=== PATIENT | female | born 2000 | race Caucasian/White ===

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

== ENCOUNTER 2023-03-11 15:18 | Emergency (ER) | payer BC, OTHER ==
[~2023-03-11] VITALS: Ht 165.1 cm; Wt 96.4 kg
[~2023-03-11 15:18] MED LIST changes: +KEFLEX500 MG PO
[2023-03-11 16:10] VITALS: BP 111/64
== END 2023-03-11 16:10 | disposition home or self-care (01) ==
LOC: ED 15:18
DX: J02.8 Acute pharyngitis due to other specified organisms (principal); Z88.0 Allergy status to penicillin; Z79.899 Other long term (current) drug therapy
CPT/HCPCS: 87880

== ENCOUNTER 2023-07-20 19:15 | Emergency (ER) | payer BC, OTHER ==
[2023-07-20] MEDS ORDERED: FLONASE ALLERG9.9 ML NAS (19:41)
[2023-07-20 20:09] VITALS: BP 126/95
== END 2023-07-20 20:10 | disposition home or self-care (01) ==
LOC: ED 19:15
DX: H68.013 Acute Eustachian salpingitis, bilateral (principal); Z88.0 Allergy status to penicillin
CPT/HCPCS: 99282

== ENCOUNTER 2024-03-23 10:10 | Emergency (ER) | payer BC, OTHER ==
[~2024-03-23] VITALS: Ht 165.1 cm; Wt 111.4 kg
[~2024-03-23 10:10] MED LIST changes: +FLONASE ALLERG9.9 ML NAS
[2024-03-23] MEDS ORDERED: CEFDINIR 300 MG CAP PO ONE (10:30)
[2024-03-23] MEDS ORDERED: FLONASE ALLERG9.9 ML NAS (10:35)
[2024-03-23] MEDS ORDERED: CEFPODOXIME PR200 MG PO (10:35)
[2024-03-23] MEDS ORDERED: CLARITIN10 M2 PO (10:35)
[2024-03-23 10:44] VITALS: BP 132/80
== END 2024-03-23 10:44 | disposition home or self-care (01) ==
LOC: ED 10:10
DX: J32.9 Chronic sinusitis, unspecified (principal); Z88.0 Allergy status to penicillin; Z79.899 Other long term (current) drug therapy
CPT/HCPCS: 99283

== ENCOUNTER 2024-03-31 12:31 | Emergency (ER) | payer BC, OTHER ==
[~2024-03-31] VITALS: Ht 165.1 cm; Wt 112.4 kg
[~2024-03-31 12:31] MED LIST changes: +CEFPODOXIME PR200 MG PO; +CLARITIN10 M2 PO
--- OUTSIDE RECORDS SUMMARY | 2024-03-31 12:40 | XMS ---
PreManage Notification: CORAL LANGLEY Security Safety Companion Events No recent Security Events currently on file CRITERIA MET - [facility] - 2 Visits in 30 Days CARE PROVIDERS -, [facility] Dentist: Science Consultant [facility] PHONE: [phone] -, [facility]- Dentist: Science Consultant [facility] PHONE: [phone] KIERA MORALES Nurse Practitioner: Family Current PHONE: [phone] [facility]: [facility] Current \F\ [facility] PHONE: [phone] Yefri has no Care Guidelines for this patient. Yasmani VISIT COUNT (12 MO.) 3 [facility] TOTAL 3 NOTE: Visits indicate total known visits. ED/UCC VISIT TRACKING (12 MO.) 03/31/2024 12:33 [facility] TYPE: Emergency COMPLAINT: - ABD PAIN 03/23/2024 10:11 [facility] TYPE: Emergency COMPLAINT: - COLD SYMPTOMS DIAGNOSES: - Allergy status to penicillin - Chronic sinusitis, unspecified - Cough, unspecified - Other case picker (current) drug therapy 07/20/2023 19:15 [facility] TYPE: Emergency COMPLAINT: - EAR PAIN DIAGNOSES: - Acute Eustachian salpingitis, bilateral - Allergy status to penicillin - Otalgia, bilateral INPATIENT VISIT TRACKING (12 MO.) No inpatient visits to display in this time frame [email or web address]
[2024-03-31] MEDS ORDERED: ASPIRIN81 MG PO (12:42)
[2024-03-31 13:03] LABS: BILIRUBIN, URINE NEGATIVE (negative); BLOOD/HGB, URINE NEGATIVE (Negative); KETONE, URINE NEGATIVE (Negative); LEUK ESTERASE, URINE NEGATIVE (negative); NITRITE, URINE NEGATIVE (negative)
[2024-03-31] MEDS ORDERED: DIFLUCAN200 MG PO (13:36)
[2024-03-31] MEDS ORDERED: FLUCONAZOLE 150 MG TAB PO ONE (13:45)
[2024-03-31 14:02] VITALS: BP 118/73
== END 2024-03-31 14:04 | disposition home or self-care (01) ==
LOC: ED 12:31
PROVIDERS: Emergency Medicine
DX: O23.593 Infection of other part of genital tract in pregnancy, third trimester (principal); B37.31 Acute candidiasis of vulva and vagina; Z3A.30 30 weeks gestation of pregnancy; Z88.0 Allergy status to penicillin; Z79.82 Long term (current) use of aspirin
CPT/HCPCS: 81003; 99284

== ENCOUNTER 2024-05-30 00:02 | Inpatient (IN) | payer BC, OTHER ==
[~2024-05-30] VITALS: Ht 165.1 cm; Wt 109.3 kg
[~2024-05-30 00:02] MED LIST changes: +ASPIRIN81 MG PO; +CALCIUM CARBONATE 500 MG CHEW PO PRN; +DIFLUCAN200 MG PO; +LACTATED RINGER'S 1,000 ML IV SCH; +MAGNESIUM HYDROXIDE/AL HYDROX 30 ML CUP PO PRN; +miSOPROStoL 25 MCG TAB PV SCH
[2024-05-30] MEDS ORDERED: OXYTOCIN/DEXTROSE 5% 20 UNITS/100 ML BAG IV SCH (00:15)
[2024-05-30 00:35] VITALS: BP 144/88
[2024-05-30 01:02] LABS: AMPHETAMINES, URINE NEGATIVE (NEGATIVE); BARBITURATES, URINE NEGATIVE (NEGATIVE); BENZODIAZEPINE, URINE NEGATIVE (NEGATIVE); BUPRENORPHINE, URINE NEGATIVE (NEGATIVE); CANNABINOID, URINE NEGATIVE (NEGATIVE); COCAINE, URINE NEGATIVE (NEGATIVE); ECSTASY, URINE NEGATIVE (NEGATIVE); FENTANYL, URINE NEGATIVE (NEGATIVE); METHADONE, URINE NEGATIVE (NEGATIVE); OPIATES, URINE NEGATIVE (NEGATIVE); OXYCODONE, URINE NEGATIVE (NEGATIVE); PHENCYCLIDINE, URINE NEGATIVE (NEGATIVE)
[2024-05-30 01:17] LABS: HEMATOCRIT 30.9 % (35.0-50.0); HEMOGLOBIN 10.7 g/dL (12.0-18.0); MCH 29.8 (27-36); MCHC 34.5 g/dl (30-36); MCV 86.4 fl (81-99); RBC 3.58 M/ul (4.3-5.7); RDW 14.2 (10.5-15.0)
[2024-05-30 01:52] LABS: ABO O; ANTIBODY SCREEN NEGATIVE; RH POSITIVE
--- NOTE | 2024-05-30 17:31 | PR ---
[facility] [address] [place], [place] [address] Signed Progress Notes IP Datetime Report Generated by SHELL: 05/30/2024 17:31 PROGRESS NOTES: [id number] Impression: Normal Progression of Labor; Reassuring Heart Rate Procedures: Intrauterine Pressure Catheter; Scalp Electrode; Sterile Vag Exam Plan: Continue Present Management Informed Consent Obtain: Vaginal Delivery VITAL SIGNS: [id number] Vital Signs: Reviewed; Within Normal Limits VS Notable Details: Slightly elevated systolic at last check; will monitor EXAM: [id number] Dilatation: 4.0 Effacement: 50 Station: -2 Contractions: q 2-3 min MEMBRANES: [id number] Comments: Pt seen and examined. Doing well. Contractions much more uncomfortable. Considering epidural. Minimal change since last check. IUPC and FSE placed w/out difficulty after obtaining verbal consent. Will monitor for adequacy of contractions and consider augmentation if indicated. FETUS A: [id number] FHR Baseline: 125 Variability: Moderate 6-25bpm Accelerations: 15X15 Decelerations: None FHR Category: Category I Presentation: Vertex Comments on Fetus A: No evidence of metabolic acidosis FETUS B: [id number] Signing Physician: Roberto Szymanski DO Copies: ~ *Electronically Signed* 05/30/24 2507 ROBERTO SZYMANSKI (CASSI) DO PATIENT NAME: CORAL LANGLEY PROGRESS NOTE DATE OF : 01 PHYSICIAN: ROBERTO SZYMANSKI (JD) DO RPT #: [id number] REPORT IS CONFIDENTIAL AND NOT TO BE RELEASED WITHOUT AUTHORIZATION
[2024-05-30] MEDS ORDERED: OXYTOCIN/0.9 % SODIUM CHLORIDE 500 ML IV SCH (18:30)
--- NOTE | 2024-05-30 21:27 | PR ---
[facility] [address] [facility] [place], [place] [address] Signed Progress Notes IP Datetime Report Generated by CPN: 05/30/2024 21:27 PROGRESS NOTES: [id number] Impression: Normal Progression of Labor; Reassuring Heart Rate Procedures: Intrauterine Pressure Catheter; Scalp Electrode; Sterile Vag Exam Plan: Continue Present Management; Anticipate Vaginal Delivery Informed Consent Obtain: Vaginal Delivery VITAL SIGNS: [id number] Vital Signs: Reviewed; Within Normal Limits VS Notable Details: Slightly elevated systolic at last check; will monitor EXAM: [id number] Dilatation: 4.5 Effacement: 50 Station: -2 Contractions: q 2-3 min MEMBRANES: [id number] Comments: Pt doing well. Adequate contractions. FHT Cat 1. Considering epidural. Will monitor FETUS A: [id number] FHR Baseline: 125 Variability: Moderate 6-25bpm Accelerations: 15X15 Decelerations: None FHR Category: Category I Presentation: Vertex Comments on Fetus A: No evidence of metabolic acidosis FETUS B: [id number] Signing Physician: Roberto Szymanski DO Copies: ~ *Electronically Signed* 05/30/242126 ROBERTO SZYMANSKI (CASSI) DO PATIENT NAME: CORAL LANGLEY PROGRESS NOTE DATE OF : 01 PHYSICIAN: ROBERTO SZYMANSKI (JD) DO RPT #: [id number] REPORT IS CONFIDENTIAL AND NOT TO BE RELEASED WITHOUT AUTHORIZATION
[2024-05-30] MEDS ORDERED: ROPIVACAINE 0.2% 200 ML BAG ONE (21:48)
[2024-05-30] MEDS ORDERED: LACTATED RINGER'S 2,000 ML IV ONE (22:30)
[2024-05-30] MEDS ORDERED: LACTATED RINGER'S 500 ML IV PRN (22:30)
[2024-05-30] MEDS ORDERED: ePHEDrine sulfate 5 MG/ML SYRINGE IV PRN (22:30)
[2024-05-30] MEDS ORDERED: ROPIVACAINE 0.2% 200 ML BAG EPIDURAL SCH (22:30)
--- NOTE | 2024-05-31 01:01 | PR ---
[facility] [address] [place], [place] [address] Signed Progress Notes IP Datetime Report Generated by CPN: 05/31/2024 01:01 PROGRESS NOTES: [id number] Impression: Normal Progression of Labor; Reassuring Heart Rate Procedures: Scalp Electrode; Sterile Vag Exam Plan: Continue Present Management Informed Consent Obtain: Vaginal Delivery VITAL SIGNS: [id number] Vital Signs: Reviewed; Within Normal Limits VS Notable Details: Slightly elevated systolic at last check; will monitor EXAM: [id number] Dilatation: 5.0 Effacement: 60 Station: -2 Contractions: Irregular, inadequate MEMBRANES: [id number] Comments: Called to pt room to evaluate patient. Moderate variability w/ accelerations and intermittent late decelerations. Pit at 4. On exam MILAGRO position of vertex w/ caput, cervix much softer and stretchy, continue accels w/ scalp stim. Reviewed EFW, adequate pelvis. FHT overall reassuring. Discussed w/ pt and recommended continued trial of vaginal labor. Comfortable w/ epidural. Afebrile. Pt understands and agrees. All questions answered. FETUS A: [id number] FHR Baseline: 125 Variability: Moderate 6-25bpm Accelerations: 15X15 Decelerations: Late FHR Category: Category II Presentation: Vertex Comments on Fetus A: No evidence of metabolic acidosis FETUS B: [id number] Signing Physician: Roberto Szymanski DO Copies: ~ *Electronically Signed* 05/31/24 0101 ROBERTO SZYMANSKI (CASSI) DO PATIENT NAME: CORAL LANGLEY PROGRESS NOTE DATE OF : 01 PHYSICIAN: ROBERTO SZYMANSKI (JD) DO RPT #: [id number] REPORT IS CONFIDENTIAL AND NOT TO BE RELEASED WITHOUT AUTHORIZATION
--- NOTE | 2024-05-31 06:07 | PR ---
[facility] [address] [place], [place] [address] Signed Progress Notes IP Datetime Report Generated by CPN: 05/31/2024 06:07 PROGRESS NOTES: [id number] Impression: Normal Progression of Labor; Reassuring Heart Rate Procedures: Sterile Vag Exam Plan: Continue Present Management Informed Consent Obtain: Vaginal Delivery VITAL SIGNS: [id number] Vital Signs: Reviewed; Within Normal Limits VS Notable Details: Slightly elevated systolic at last check; will monitor EXAM: [id number] Dilatation: 7.0 Effacement: 60 Station: -2 Contractions: q 3-5 min MEMBRANES: [id number] Comments: Pt seen and examined. Comfortable w/ contractions. Overall reassuring FHT w/ moderate variability and accelerations. Anticipate continued progress and recommend continuing trial of vaginal delivery. Pt understands and agrees. FETUS A: [id number] FHR Baseline: 125 Variability: Moderate 6-25bpm Accelerations: 15X15 Decelerations: Late; Variable FHR Category: Category II Presentation: Vertex Comments on Fetus A: No evidence of metabolic acidosis FETUS B: [id number] Signing Physician: Roberto Szymanski DO Copies: ~ *Electronically Signed* 05/31/24606 ROBERTO SZYMANSKI (CASSI) DO PATIENT NAME: CORAL LANGLEY PROGRESS NOTE DATE OF : 01 PHYSICIAN: ROBERTO SZYMANSKI (JD) DO RPT #: [id number] REPORT IS CONFIDENTIAL AND NOT TO BE RELEASED WITHOUT AUTHORIZATION
[2024-05-31] MEDS ORDERED: SODIUM CHLORIDE 0.9% 1,000 ML IV SCH (08:15)
--- NOTE | 2024-05-31 09:18 | PR ---
[facility] [address] [place], [place] [address] Signed Progress Notes IP Datetime Report Generated by SHELL: 05/31/2024 09:18 PROGRESS NOTES: [id number] Impression: Normal Progression of Labor; Reassuring Heart Rate Procedures: Amnio Infusion Other Procedures: D/C'd pitocin Plan: Continue Present Management Informed Consent Obtain: Vaginal Delivery; Section Delivery VITAL SIGNS: [id number] Vital Signs: Reviewed; Within Normal Limits VS Notable Details: Slightly elevated systolic at last check; will monitor EXAM: [id number] Dilatation: 7.0 Effacement: 70 Station: -2 Contractions: q 3-5 min MEMBRANES: [id number] Comments: Pt seen and examined. Doing well and comfortable w/ contractions. Developed recurrent deep variable decelerations. Pitocin was discontinued and amnio-infusion started. Variables much improved, however contractions have significantly spaced. Kwasi continue to monitor. Consider restarting pitocin when appropriate. Discussed plan for but also reviewed indications for if needed, but no indication for that now FETUS A: [id number] FHR Baseline: 125 Variability: Moderate 6-25bpm Accelerations: 15X15 Decelerations: Variable FHR Category: Category II Presentation: Vertex Comments on Fetus A: No evidence of metabolic acidosis FETUS B: [id number] Signing Physician: Roberto Szymanski DO Copies: ~ *Electronically Signed* 05/31/24917 ROBERTO SZYMANSKI (CASSI) DO PATIENT NAME: CORAL LANGLEY PROGRESS NOTE DATE OF : 01 PHYSICIAN: ROBERTO SZYMANSKI (JD) DO RPT #: [id number] REPORT IS CONFIDENTIAL AND NOT TO BE RELEASED WITHOUT AUTHORIZATION
--- NOTE | 2024-05-31 11:23 | PR ---
[facility] [address] [place], [place] [address] Signed Progress Notes IP Datetime Report Generated by SHELL: 05/31/2024 11:23 PROGRESS NOTES: [id number] Impression: Normal Progression of Labor; Reassuring Heart Rate Procedures: Sterile Vag Exam Other Procedures: D/C'd pitocin Plan: Continue Present Management Informed Consent Obtain: Vaginal Delivery; Section Delivery VITAL SIGNS: [id number] Vital Signs: Reviewed; Within Normal Limits VS Notable Details: Slightly elevated systolic at last check; will monitor EXAM: [id number] Dilatation: 8.0 Effacement: 70 Station: -2 Contractions: q 4-6 min, inadequate MEMBRANES: [id number] Comments: Pt seen and examined. Doing well. Comfortable w/ contractions. FHT reassuring. Contractions inadequate and pit was restarted. Will continue increasing pitocin per protocol. Cx now 8cm and soft. Again reviewed adequate pelvis, afebrile / no tachycardia, and EFW. FETUS A: [id number] FHR Baseline: 125 Variability: Moderate 6-25bpm Accelerations: 15X15 Decelerations: Early; Variable FHR Category: Category II Presentation: Vertex Comments on Fetus A: No evidence of metabolic acidosis FETUS B: [id number] Signing Physician: Roberto Szymanski DO Copies: ~ *Electronically Signed* 05/31/24 1123 ROEBRTO SZYMANSKI (CASSI) DO PATIENT NAME: CORAL LANGLEY PROGRESS NOTE DATE OF : 01 PHYSICIAN: ROBERTO SZYMANSKI (JD) DO RPT #: [id number] REPORT IS CONFIDENTIAL AND NOT TO BE RELEASED WITHOUT AUTHORIZATION
--- NOTE | 2024-05-31 12:11 | PR ---
[facility] [address] [place], [place] [address] Signed Progress Notes IP Datetime Report Generated by SHELL: 05/31/2024 12:11 PROGRESS NOTES: [id number] Impression: Normal Progression of Labor; Reassuring Heart Rate Procedures: Sterile Vag Exam Other Procedures: D/C'd pitocin Plan: Continue Present Management; Anticipate Vaginal Delivery Informed Consent Obtain: Vaginal Delivery VITAL SIGNS: [id number] Vital Signs: Reviewed; Within Normal Limits VS Notable Details: Slightly elevated systolic at last check; will monitor EXAM: [id number] Dilatation: 8.0 Effacement: 80 Station: -2 Contractions: q 3-4 min MEMBRANES: [id number] Comments: Pt seen and examined. Doing well. Early decelerations noted and one recent variable. Reassuring FHT. Accel w/ scalp stim. Again adequate pelvis noted. Anticipate soon. FETUS A: [id number] FHR Baseline: 125 Variability: Moderate 6-25bpm Accelerations: 15X15 Decelerations: Early; Variable FHR Category: Category II Presentation: Vertex Comments on Fetus A: No evidence of metabolic acidosis FETUS B: [id number] Signing Physician: Roberto Szymanski DO Copies: ~ *Electronically Signed* 05/31/24 1211 ROBERTO SZYMANSKI (CASSI) DO PATIENT NAME: CORAL LANGLEY PROGRESS NOTE DATE OF : 01 PHYSICIAN: ROBERTO SZYMANSKI (JD) DO RPT #: [id number] REPORT IS CONFIDENTIAL AND NOT TO BE RELEASED WITHOUT AUTHORIZATION
[2024-05-31] MEDS ORDERED: BENZOCAINE 60 ML AEROSOL TOP PRN (15:45)
[2024-05-31] MEDS ORDERED: MAGNESIUM HYDROXIDE 30 ML UDC PO PRN (15:45)
[2024-05-31] MEDS ORDERED: ACETAMINOPHEN 325 MG TAB PO PRN (15:45)
[2024-05-31] MEDS ORDERED: HYDROCORTISONE ACETATE 25 MG SUPP PR PRN (15:45)
[2024-05-31] MEDS ORDERED: WITCH HAZEL/GLYCERIN 1 EA PAD TOP PRN (15:45)
[2024-05-31] MEDS ORDERED: IBUPROFEN 800 MG TAB PO PRN (16:00)
[2024-05-31] MEDS ORDERED: SENNOSIDES/DOCUSATE 1 EA TAB PO SCH (21:00)
[2024-06-01 05:14] LABS: HEMATOCRIT 29.1 % (35.0-50.0); HEMOGLOBIN 9.8 g/dL (12.0-18.0); MCH 29.7 (27-36); MCHC 33.7 g/dl (30-36); MCV 88.2 fl (81-99); RBC 3.3 M/ul (4.3-5.7); RDW 14.3 (10.5-15.0)
== END 2024-06-02 09:37 | disposition home or self-care (01) | DRG 807 ==
LOC: FBC 00:02
PROVIDERS: Obstetrics & Gynecology; ADMIT Obstetrics & Gynecology; ATTEND Obstetrics & Gynecology
PROC: 10E0XZZ Delivery of Products of Conception, External Approach (ICD-10-PCS; principal; 2024-05-31)
PROC: 10H07YZ Insertion of Other Device into Products of Conception, Via Natural or Artificial Opening (ICD-10-PCS; 2024-05-31)
PROC: 3E0R3BZ Introduction of Anesthetic Agent into Spinal Canal, Percutaneous Approach (ICD-10-PCS; 2024-05-31)
PROC: 00HU33Z Insertion of Infusion Device into Spinal Canal, Percutaneous Approach (ICD-10-PCS; 2024-05-31)
PROC: 10907ZC Drainage of Amniotic Fluid, Therapeutic from Products of Conception, Via Natural or Artificial Opening (ICD-10-PCS; 2024-05-31)
PROC: 0HQ9XZZ Repair Perineum Skin, External Approach (ICD-10-PCS; 2024-05-31)
DX: O76 Abnormality in fetal heart rate and rhythm complicating labor and delivery (principal); Z37.0 Single live birth; O70.0 First degree perineal laceration during delivery; O69.81X0 Labor and delivery complicated by cord around neck, without compression, not applicable or unspecified; Z3A.39 39 weeks gestation of pregnancy; O99.214 Obesity complicating childbirth
CPT/HCPCS: 01960; 36415; 80307; 85027; 86850; 86900; 86901; A9270; J2795; J7030; J7121

== ENCOUNTER 2025-04-23 08:49 | Emergency (ER) | payer BC, OTHER ==
[~2025-04-23] VITALS: Ht 152.4 cm; Wt 108.0 kg
[~2025-04-23 08:49] MED LIST changes: -CALCIUM CARBONATE 500 MG CHEW PO PRN; -LACTATED RINGER'S 1,000 ML IV SCH; -MAGNESIUM HYDROXIDE/AL HYDROX 30 ML CUP PO PRN; -miSOPROStoL 25 MCG TAB PV SCH
[2025-04-23 09:29] LABS: BASOPHILS 0.5 % (0.1-1.2); HEMATOCRIT 41.3 % (34.1-44.9); HEMOGLOBIN 13.6 g/dL (11.2-15.7); LYMPHOCYTES 37.8 % (19.3-51.7); MCH 27.8 PG (25.6-32.2); MCHC 32.9 g/dL (32.2-35.5); MCV 84.5 fL (79.4-94.8); MONOCYTES 5.1 % (4.7-12.5); NEUTROPHILS 55.4 % (34.0-71.1); PLATELET COUNT 255 K/uL (182-369); RBC 4.89 M/uL (3.93-5.22)
[2025-04-23 09:45] LABS: ALBUMIN 4.4 g/dL (3.4-5.0); ALBUMIN/GLOBULIN RATIO 1.19 (1.1-2.4); ANION GAP 15.9 (7-21); BUN/CREATININE RATIO 10.12 (6.0-28.6); CALCIUM 9.2 mg/dL (8.5-10.1); CREATININE, SERUM 0.79 mg/dL (0.55-1.02); POTASSIUM 3.9 mmol/L (3.5-5.1); PROTEIN, TOTAL 8.1 g/dL (6.4-8.2)
[2025-04-23 09:52] LABS: BILIRUBIN, URINE NEGATIVE (negative); BLOOD/HGB, URINE NEGATIVE (Negative); KETONE, URINE NEGATIVE (Negative); LEUK ESTERASE, URINE NEGATIVE (negative); NITRITE, URINE NEGATIVE (negative); PH, URINE 7.5 (5-7)
[2025-04-23 11:18] VITALS: BP 112/79
== END 2025-04-23 11:19 | disposition home or self-care (01) ==
LOC: ED 08:49
PROVIDERS: Emergency Medicine
DX: G43.909 Migraine, unspecified, not intractable, without status migrainosus (principal); Z88.1 Allergy status to other antibiotic agents
CPT/HCPCS: 36415; 70551; 80053; 81003; 84703; 85025; 99284-25

== ENCOUNTER 2025-06-13 05:58 | Day surgery (SDC) | payer BC, OTHER ==
[~2025-06-13] VITALS: Ht 162.6 cm; Wt 107.0 kg
--- NOTE | ~2025-06-13 | OR ---
[address] [address] Draft DATE OF OPERATION: 06/13/2025 SURGEON: Kolby Mack MD PREOPERATIVE DIAGNOSES: 1. Pelvic pain. 2. Persistent right ovarian cyst. 3. Uterine polyp. POSTOPERATIVE DIAGNOSES: 1. Pelvic pain. 2. Persistent right ovarian cyst. 3. Uterine polyp. PROCEDURES: Diagnostic laparoscopy with laparoscopic right ovarian cystectomy. Also diagnostic hysteroscopy with hysteroscopic endometrial polypectomy. FINDINGS: The patient had an approximately 6 cm simple right ovarian cyst distal to the right ovary. She otherwise had normal ovaries bilaterally, normal uterus, normal fallopian tubes, normal anterior and posterior cul-de-sacs, normal appendix, normal liver edge and gallbladder tip. ANESTHESIA: General plus local. 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 IV FLUIDS: 1400 mL crystalloid. ESTIMATED BLOOD LOSS: 10 mL. URINE OUTPUT: 100 mL clear urine. DRAINS: PATIENT NAME: CORAL LANGLEY OPERATIVE REPORT DATE OF : 01 REPORT #: [id number] PHYSICIAN: KOLBY MACK MD PCP: FRANTZ LITTLE MD REPORT IS CONFIDENTIAL AND NOT TO BE RELEASED WITHOUT AUTHORIZATION [facility] [address] [place] [id number] Draft None. SPECIMENS: Right ovarian cyst and endometrial polyp. COUNTS: Correct x2. COMPLICATIONS: None apparent. TECHNIQUE IN DETAIL: With informed consent and negative hCG, the patient was taken to the operating room, where she was given general endotracheal anesthesia via rapid sequence induction. Her lower extremities were placed in SCD pneumatic compression devices for DVT prophylaxis. No antibiotics were indicated and none were given. Lower extremities were also placed in low lithotomy position using short-fin stirrups. She underwent a brief exam under anesthesia revealing a normal-sized anteverted uterus. She was prepped and draped in sterile fashion and time-out was performed per protocol. A speculum was placed and the cervix was visualized. Single-tooth tenaculum was placed on the anterior lip of the cervix and Lund cannula was placed into the cervical canal. The red rubber catheter was placed into the bladder and held in place with the tenaculum arms. This drained the bladder of 100 mL of clear urine. Speculum was removed and over gloves were removed. Attention was then turned to the abdomen. 5 mL of 0.25% Marcaine with epinephrine were injected periumbilically and another 5 mL were injected suprapubically. Approximately 1 to 1.5 cm periumbilical skin incision was made and a Veress needle was inserted into the abdomen without difficulty. It was attached to CO2 insufflation and opening pressure was 4 mmHg. With an adequate pneumoperitoneum created, the Veress needle was removed and a 5 mm non-bladed Visiport trocar was inserted under direct visualization and without difficulty. Once we entered the abdomen, the area underneath the Veress needle site was inspected and found to be within normal limits. The patient was then placed in Trendelenburg position. A 1 cm suprapubic incision was then made. A second 5 mm non-bladed port was inserted under direct visualization and also without difficulty. We then used a blunt probe to examine the pelvic and abdominal contents as noted above. At this point, it was decided that a third port would be necessary to extract the ovarian cyst. As such, the left inferior epigastric vessels were identified from within and a site lateral to these vessels was identified as being safe for port insertion. Transillumination was also performed to ensure no superficial vessels present in the area. At this point, an PATIENT NAME: CORAL LANGLEY OPERATIVE REPORT DATE OF : 01 REPORT #: [id number] PHYSICIAN: KOLBY MACK MD PCP: FRANTZ LITTLE MD REPORT IS CONFIDENTIAL AND NOT TO BE RELEASED WITHOUT AUTHORIZATION [facility] [address] [place], [place] [address] Draft additional 5 mL of 0.25% Marcaine were injected and 1 cm incision was made. A third 5 mm non-bladed port was inserted under direct visualization and also without difficulty. At this point, a grasper and the LigaSure device were inserted. There was a bridge between the normal ovarian tissue and the cyst that was clamped, cauterized and cut, allowing entry into the cyst complex. At this point, we began to cauterize and cut the cyst away from the overlying area. We paid careful attention to the path of the right fallopian tube as it was just above the cyst. Once we had dissected much of this away, we made an attempt to peel away the overlying tube from the underlying cyst with extreme caution, we wanted to make sure that we were super careful and gentle with the right fallopian tube. We were able to successfully peel overlying tube away from the cyst wall and this freed up the entire tube, which was fabulous. We then disconnected the right ovarian cyst from the right ovary using traction and some cautery and cutting. The cyst wall was removed from the abdomen through the suprapubic port. We then irrigated the pelvis and removed all irrigant. We inspected the right fallopian tube and right ovary very carefully and excellent hemostasis was noted at this point. Also, at this point, we decided that we were complete with our abdominal portion of the case and the CO2 was discontinued and the left lower quadrant and suprapubic ports were removed. We partially deflated the abdomen and inspected the port sites from within to ensure good hemostasis and this was noted. At this point, all CO2 was removed from the abdomen and the periumbilical port was removed. The skin incisions were closed with 4-0 Vicryl and Dermabond was placed. Attention was then turned to the pelvis. The single-tooth tenaculum, Lund cannula and red rubber catheter were removed. Speculum was returned to the vagina, so that we could visualize the cervix. Single-tooth tenaculum was placed in the cervix again using the same puncture sites as previous. The uterus was sounded and found to be 9 cm. The cervical canal was then carefully dilated using Hegar dilators. We dilated enough to allow insertion of the hysteroscope. Of special note, the cervix did receive 10 mL of 0.25% Marcaine as a paracervical block before we began manipulation. The hysteroscope was inserted and there was direct visualization of the cervical canal as well as the uterine cavity. We did see a small polyp on the posterior aspect of the distal uterine cavity. The MyoSure light device was then removed from the packaging and inserted and we removed the polyp without difficulty. At this point, all the procedure was completed. Hysteroscope was removed. Single-tooth tenaculum was then removed. Tenaculum sites were noted to be hemostatic. The speculum was removed as well. DISPOSITION: The patient was extubated in the operating room. She was taken to the recovery room in stable condition. PATIENT NAME: CORAL LANGLEY OPERATIVE REPORT DATE OF : 01 REPORT #: [id number] PHYSICIAN: KOLBY MACK MD PCP: FRANTZ LITTLE MD REPORT IS CONFIDENTIAL AND NOT TO BE RELEASED WITHOUT AUTHORIZATION [address] [place] [id number] Draft MD ANITA Henning/ANNELIESE /[id number] Copies: ~ PATIENT NAME: CORAL LANGLEY OPERATIVE REPORT DATE OF : 01 REPORT #: [id number] PHYSICIAN: KOLBY MACK MD PCP: FRANTZ LITTLE MD REPORT IS CONFIDENTIAL AND NOT TO BE RELEASED WITHOUT AUTHORIZATION
[~2025-06-13 05:58] MED LIST changes: +LACTATED RINGER'S 1,000 ML IV SCH
[2025-06-13 06:17] VITALS: BP 115/76
[2025-06-13] MEDS ORDERED: fentaNYL citrate 100 MCG/2 ML VIAL ONE (06:59)
[2025-06-13] MEDS ORDERED: MIDAZOLAM HCL 2 MG/2 ML VIAL ONE (06:59)
[2025-06-13] MEDS ORDERED: DEXAMETHASONE SOD PHOS 4 MG/ML VIAL ONE (06:59)
[2025-06-13] MEDS ORDERED: KETOROLAC TROMETHAMINE 30 MG/ML VIAL ONE (06:59)
[2025-06-13] MEDS ORDERED: ROCURONIUM BROMIDE 50 MG/5 ML SYR ONE ×2 (06:59→08:47)
[2025-06-13] MEDS ORDERED: LIDOCAINE HCL 2% 5 ML SDV ONE (06:59)
[2025-06-13] MEDS ORDERED: LIDOCAINE HCL 1% 5 ML SDV INJ ONE (07:00)
[2025-06-13] MEDS ORDERED: IBLOOD GLUCOSE TEST STRIP 1 EA TEST VI PRN ×2 (07:00→09:00)
[2025-06-13] MEDS ORDERED: BUPIVACAINE HCL 0.25% 50 ML MDV ONE (07:10)
[2025-06-13] MEDS ORDERED: LIDOCAINE HCL 1% 30 ML SDV ONE (07:52)
[2025-06-13] MEDS ORDERED: KETAMINE in NS 50 MG/5 ML SYR ONE (07:53)
[2025-06-13] MEDS ORDERED: ACETAMINOPHEN 1,000 MG/100 ML VIAL ONE (07:59)
[2025-06-13] MEDS ORDERED: GLYCOPYRROLATE 1 MG/5 ML MDV ONE (08:24)
[2025-06-13] MEDS ORDERED: SUGAMMADEX SODIUM 200 MG/2 ML ML ONE (08:47)
[2025-06-13] MEDS ORDERED: LACTATED RINGER'S 1,000 ML IV ONE (08:59)
[2025-06-13] MEDS ORDERED: fentaNYL citrate 50 MCG/ML SDV IV PRN (09:00)
[2025-06-13] MEDS ORDERED: NALOXONE HCL 0.4 MG SYR IV PRN (09:00)
--- NOTE | 2025-06-13 09:47 | NUR ---
06/13/25 0934 Allie Curry 0928- PT PRESENTS TO PACU, SEMI NEVAREZ POSITION, NON REACTIVE TO STIMULUS. OPA IN PLACE, BREATHING EVEN AND NON LABORED. LR INFUSING TO RH IV. 2 LAP SITES, NO DRAINAGE, NO VAGINAL BLEEDING. ALL MONITORS IN PLACE. 0940- PT SWALLOWING AND THEN WRETCHING SLIGHTLY, PT REACTIVE IN MOVING WITH STIMULUS, TEETH CLAMPED ON OPA. CONTINUE TO STIMULATE PT AND EVENTUALLY TEETH OPENED ENOUGH TO REMOVE OPA. PT NEVER OPENED EYES AND CONTINUES TO SLEEP. O2 LEFT IN PLACE. CONTINUE TO MONITOR. 0943- PT CONTINUES TO SWALLOW FREQUENTLY, SUCTION ON AT BEDSIDE AND EMESIS BAG READY. ALCOHOL SWAB USED FOR NON PHARMACOLOGIC ANTI NAUSEA. CONTINUE TO MONITOR.
[2025-06-13 10:23] VITALS: BP 125/72
--- NOTE | 2025-06-13 10:35 | NUR ---
1025-PT BACK TO ROOM FROM PACU ON RA. RECEIVED REPOERT FROM STEFANO. PT IS DROWSY. RESP EVEN AND UNLABORED. RATES PAIN 4/10 AND THIS IS TOLERABLE. DENIES NAUSEA. WATER AND CRACKERS AT BEDSIDE TABLE. NO OTHER NEEDS AT THIS TIME. CALL LIGHT WITHIN REACH.
[2025-06-13 11:18] VITALS: BP 120/67
--- NOTE | 2025-06-13 11:21 | NUR ---
PT IS LAYING IN BED WITH EYES CLOSED. OPENS EYES WITH VERBAL STIMULI AND ANSWERS QUESTIONS. RESP EVEN AND UNLABORED. WATER AND CRACKERS AT BEDSIDE. NO OTHER NEEDS AT THIS TIME. CALL LIGHT WITHIN REACH.
[2025-06-13 12:20] VITALS: BP 119/79
--- NOTE | 2025-06-13 12:52 | NUR ---
1205-PT UP TO RESTROOM. PT VOIDS 100ML OF YELLOW URINE. 1208-PT BACK TO ROOM. PT READY TO GO HOME. PT WILL GET DRESSED. CALL LIGHT WITHIN REACH.
--- NOTE | 2025-06-13 12:53 | NUR ---
1223-WENT OVER DISCHARGE INSTRUCTIONS WITH PT. WENT OVER POSTOP MEDICATIONS. ALL QUESITONS ANSWERED. PT AMBUALTES TO WHEELCHAIR AND RIDE PROVIDED TO FRONT OF HOSPITAL WHERE RIDE WAS WAITING WITH THE CAR.
[2025-06-13] MEDS ORDERED: SEVOFLURANE 250 ML BTL INH ONE (14:59)
--- NOTE | 2025-06-19 09:48 | PATH ---
[facility] [address] [place], [place] [address] Signed SPECIMEN(S): A RIGHT OVARIAN CYST SPECIMEN(S): B UTERINE POLYP SPECIMEN SOURCE: A. RIGHT OVARIAN CYST B. UTERINE POLYP CLINICAL HISTORY: Three: G3, P2 right ovarian cyst, uterine polyp. Post: D+ C hysteroscopy, right ovarian cystectomy FINAL PATHOLOGIC DIAGNOSIS: A. Right ovarian cyst: - Benign serous cystadenoma - Negative for atypia or malignant neoplasm B. Uterine polyp: - Fragments of disordered proliferative to secretory endometrium with features consistent with polyp - Negative for hyperplasia or neoplasia BB MICROSCOPIC EXAMINATION: Histologic sections of all submitted blocks are examined by light microscopy. These findings, together with the gross examination, support the pathologic diagnosis. GROSS DESCRIPTION: A. The specimen, labeled and designated "Aalbers, right ovarian cyst," is received in formalin and consists of pink-espinal, fibromembranous cyst-like tissue fragment that measure 6.5 x 1.8 x 0.2 cm. Serosal surface is pink-espinal, smooth and partially covered with fibromembranous adhesions. The inner surface of the specimen is smooth. No papillary excrescences are grossly identified. Bundle Tier And Labeler sections are submitted in (A1-A2). B. The specimen, labeled and designated "Aalbers, uterine polyp," is received in formalin and consists of pink-espinal fibromembranous tissue fragments that aggregate measure 3.0 x 2.5 x 0.2 cm. Entirely submitted in (B1-B2). JS (under the direct supervision of a pathologist) The Gross Description was prepared using a voice recognition system. The report was reviewed for accuracy; however, sound-alike word errors, addition and/or PATIENT NAME: CORAL LANGLEY PATHOLOGY DATE OF : 01 REPORT #: [id number] PHYSICIAN: [facility] PCP: FRANTZ LITTLE MD REPORT IS CONFIDENTIAL AND NOT TO BE RELEASED WITHOUT AUTHORIZATION [facility] [address] [place], [place] [address] Signed deletions may occur. If there is any question about this report, please contact Client Services. ADDITIONAL NOTES: Immunohistochemical and/or in situ hybridization studies if performed in this case included appropriate positive controls that reacted as expected. This test was developed and its performance characteristics determined by [facility]. It has not been cleared or approved by the U.S. Food and Drug Administration. The FDA has determined that such clearance or approval is not necessary. This test is used for clinical purposes. It should not be regarded as investigational or for research. [facility] is certified under the Clinical Laboratory Improvement Amendments of 1988 (CLIA) as qualified to perform high complexity clinical laboratory testing. PERFORMING LABORATORY: Technical component was performed by [facility], [address] [place] [id number] (CLIA# [id number]). Professional interpretation was performed by [facility] [address] [address] (CLIA#: [id number]). Diagnostician: Virgilio Carreon MD Pathologist Electronically Signed 06/19/2025 Copies: ~ PATIENT NAME: CORAL LANGLEY PATHOLOGY DATE OF : 01 REPORT #: [id number] PHYSICIAN: [facility] PCP: FRANTZ LITTLE MD REPORT IS CONFIDENTIAL AND NOT TO BE RELEASED WITHOUT AUTHORIZATION
== END 2025-06-13 12:23 | disposition home or self-care (01) ==
LOC: OPS 05:58 → DS 05:58 → OPS 07:30
PROVIDERS: ATTEND Obstetrics & Gynecology
PROC: 0UB04ZZ Excision of Right Ovary, Percutaneous Endoscopic Approach (ICD-10-PCS; principal; 2025-06-13 07:30)
PROC: 0UB98ZZ Excision of Uterus, Via Natural or Artificial Opening Endoscopic (ICD-10-PCS; 2025-06-13 07:30)
DX: D27.0 Benign neoplasm of right ovary (principal); N84.0 Polyp of corpus uteri; Z88.0 Allergy status to penicillin
CPT/HCPCS: 00952; J0131; J1100; J1790; J1885; J2003; J2250; J2405; J2704; J3010; J3490; J7121